=== PATIENT | female | born 1970 | race Caucasian/White ===

== ENCOUNTER 2018-08-30 09:42 | Emergency (ER) | payer OTHER ==
[~2018-08-30 09:42] MED LIST: ADV100/50 INH; ALB17R INH; ALBU8.5H IH; ALE10 PO; AZIT-17 PO; BENZ200C15 PO; CEF300 PO; CIP500 PO; DOXY-181 PO; ESOM20CA31 PO; FLU45SYR25 IM ONLY; FLU60SYR30 IM ONLY; FLUT16SP19 NS; HYDR2TAB4 PO; IBUP800T37 PO; LEVO250T37 PO; MONT10TA PO; MULT-820 PO; NAPR-1043 PO; OMEP-114 PO; PHENA200 PO; PRE20 PO; PRED20TA6 PO; Return to Work; Work Note
[2018-08-30] MEDS ORDERED: ALB6.7R INH (09:48)
[2018-08-30] MEDS ORDERED: ALBUTEROL/IPRATROPIUM 3 ML NEB NEB ONE ×2 (10:10→11:35)
[2018-08-30] MEDS ORDERED: guaiFENesin 600 MG TABCR PO ONE (10:10)
--- NOTE | 2018-08-30 10:20 | ER Report ---
History and Physical Time Seen By MD: 09:55 Hx. of Stated Complaint: INCREASING SOB SINCE FRIDAY HPI/ROS CHIEF COMPLAINT: shortness of breath, cough HISTORY OF PRESENT ILLNESS: Patient presents with symptoms that she feels like is a cold and asthma. 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 This morning she attempted her inhaler once which helped temporarily. She has also taken Sudafed to help with congestion. Patient states she is increasingly short of breath and feels she needs something to help with the congestion. She is short of breath both at rest and on exertion though increased on exertion. Patient does not have chest pain, fever, nausea, vomiting, abdominal pain, change in urination. Patient does note some swelling in all extremities but denies focal extremity pain. She has recently traveled by car to [place] which is less than 6 hours, but denies other travel. She denies family history of VTE. REVIEW OF SYSTEMS: Constitutional: No fever, no chills. Eyes: No discharge. ENT: sore throat with productive cough Cardiovascular: No chest pain, no palpitations. Respiratory: as above Gastrointestinal: No abdominal pain, no vomiting. Genitourinary: No hematuria. Musculoskeletal: No back pain. Skin: No rashes. Neurological: No headache. Remainder of the 14 system rev: Yes Allergies: Coded Allergies: Penicillins (Verified Allergy, Mild, HIVES, 08/30/18) latex (Verified Allergy, Mild, ITCHY, 08/30/18) IRRITATES ECZEMA codeine (Verified Adverse Reaction, Mild, NAUSEA AND VOMITING FOR 3 DAYS, 08/30/18) Home Meds Active Scripts Prednisone (PREDNISONE) 20 Mg Tablet, 40 MG PO QDAY for 4 Days, #8 TAB Prov:NAYELI GRIJALVA MD 08/30/18 Guaifenesin/Pseudoephedrne Hcl (MUCINEX D ER 600-60 MG TABLET) 1 Each Tab.er.12h, 1 EACH PO TID for 4 Days, #12 TAB-CAP Prov:NAYELI GRIJALVA MD 08/30/18 Montelukast Sodium (SINGULAIR) 10 Mg Tablet, 1 TAB PO QHS, #30 TAB 11 Refills Prov:HOANG RENAE APRN [employer] 10/28/16 Reported Medications Albuterol Sulfate (PROVENTIL HFA) 6.7 Gm Inh, 2 PUFF INH Q4-6H, INH 08/30/18 Discontinued Reported Medications Albuterol Sulfate 90 Mcg/Act (PROAIR HFA 90 MCG/ACT) Unknown Strength Hfa.aer.ad, IH 3-4XD, INHALER 03/17/18 Multivitamin (MULTIVITAMINS) 1 Each Tablet, 1 TAB PO DAILY, TAB 10/20/15 Omeprazole (PRILOSEC) 20 Mg Capsule.dr, 1 TAB PO QDAY, TAB 10/20/15 Discontinued Scripts [Work Note] No Conflict Check Patient seen in the office today with a cold and asthma. She may return to work tomorrow 03/18/18. Prov:MACIE SCHRADER DNP, FNP-BC 03/17/18 Benzonatate (BENZONATATE) 200 Mg Capsule, 1 CAP PO TID PRN for COUGH, #30 CAP 0 Refills Prov:MACIE SCHRADER DNP, FNP-BC 03/17/18 Prednisone (PREDNISONE) 20 Mg Tablet, 1 TAB PO BID for 5 Days, #10 TAB 0 Refills Prov:MACIE SCHRADER DNP, FNP-BC 03/17/18 [Return to Work] No Conflict Check Prov:MACIE SCHRADER DNP, FNP-BC 01/15/18 Ibuprofen (IBUPROFEN) 800 Mg Tablet, 1 TAB PO Q8H, #30 TAB 0 Refills Take with food every 8 hours. Prov:BECCA RAMIREZ MD 10/10/17 Reviewed Nurses Notes: Yes Hx Smoking: No Smoking Status: Never Smoker Exposure to Second Hand Smoke?: No Hx Substance Use Disorder: No Hx Alcohol Use: No Constitutional Vital Sign - Last 24 Hours 08/30/18 08/30/18 08/30/18 08/30/18 09:46 09:46 10:56 10:56 Temp 98.2 Pulse 86 64 Resp 22 18 B/P (MAP) 188/104 Pulse Ox 90 94 O2 Delivery Room Air Nasal Cannula O2 Flow Rate 1.0 1.0 08/30/18 08/30/18 11:40 11:40 Pulse 64 Resp 18 Pulse Ox 93 O2 Delivery Nasal Cannula O2 Flow Rate 1.0 Physical Exam General Appearance: The patient is alert, has no immediate need for airway protection and no signs of toxicity. Eyes: Pupils equal and round no pallor or injection. ENT, Mouth: Mucous membranes are moist. Respiratory: There are no retractions, lungs are clear to auscultation. Pt is on 1 L 02 Cardiovascular: Regular rate and rhythm. Gastrointestinal: Abdomen is soft and non tender, no masses, bowel sounds normal. Neurological: alert, oriented Skin: Warm and dry, no rashes. Musculoskeletal: Neck is supple non tender. Extremities are nontender and have full range of motion; however pt has mild edema in all extremities. DIFFERENTIAL DIAGNOSIS: After history and physical exam differential diagnosis was considered for shortness of breath including but not limited to pulmonary infectious process, COPD, asthma, pulmonary embolus and congestive heart failure, acs, asthma. Medical Decision Making Data Points Result Diagram: 08/30/18 1020 08/30/18 1020 Laboratory Hematology Test 08/30/18 10:20 Red Blood Count 5.24 M/uL (4.17-5.56) Mean Corpuscular Volume 78.2 fL (80.0-96.0) Mean Corpuscular Hemoglobin 24.8 pg (26.0-33.0) Mean Corpuscular Hemoglobin Concent 31.8 g/dL (32.0-36.0) Red Cell Distribution Width 16.6 % (11.5-14.5) Mean Platelet Volume 8.8 fL (7.2-11.1) Neutrophils (%) (Auto) 72.2 % (39.4-72.5) Lymphocytes (%) (Auto) 13.9 % (17.6-49.6) Monocytes (%) (Auto) 7.9 % (4.1-12.4) Eosinophils (%) (Auto) 2.2 % (0.4-6.7) Basophils (%) (Auto) 3.8 % (0.3-1.4) Nucleated RBC Relative Count (auto) 0.0 /100WBC Neutrophils # (Auto) 7.0 K/uL (2.0-7.4) Lymphocytes # (Auto) 1.3 K/uL (1.3-3.6) Monocytes # (Auto) 0.8 K/uL (0.3-1.0) Eosinophils # (Auto) 0.2 K/uL (0.0-0.5) Basophils # (Auto) 0.4 K/uL (0.0-0.1) Nucleated RBC Absolute Count (auto) 0.00 K/uL Peripheral Blood Smear Yes Y/N Sodium Level 142 mmol/L (137-145) Potassium Level 4.0 mmol/L (3.5-5.0) Chloride Level 104 mmol/L (98-107) Carbon Dioxide Level 31 mmol/L (22-31) Blood Urea Nitrogen 25 mg/dl (7-18) Creatinine 0.60 mg/dl (0.52-1.04) Glomerular Filtration Rate Calc > 60.0 Random Glucose 119 mg/dl (75-110) Calcium Level 8.9 mg/dl (8.4-10.2) Total Bilirubin 0.4 mg/dl (0.2-1.3) Aspartate Amino Transf (AST/SGOT) 19 U/L (0-35) Alanine Aminotransferase (ALT/SGPT) 23 U/L (0-56) Alkaline Phosphatase 65 U/L (0-126) Troponin I < 0.012 ng/ml B-Type Natriuretic Peptide 13 pg/ml (0-100) Total Protein 6.6 g/dl (6.3-8.2) Albumin 3.7 g/dl (3.5-5.0) Chemistry Test 08/30/18 10:20 White Blood Count 9.7 k/uL (4.5-11.0) Red Blood Count 5.24 M/uL (4.17-5.56) Hemoglobin 13.0 g/dL (12.0-16.0) Hematocrit 40.9 % (34.0-47.0) Mean Corpuscular Volume 78.2 fL (80.0-96.0) Mean Corpuscular Hemoglobin 24.8 pg (26.0-33.0) Mean Corpuscular Hemoglobin Concent 31.8 g/dL (32.0-36.0) Red Cell Distribution Width 16.6 % (11.5-14.5) Platelet Count 266 K/uL (150-450) Mean Platelet Volume 8.8 fL (7.2-11.1) Neutrophils (%) (Auto) 72.2 % (39.4-72.5) Lymphocytes (%) (Auto) 13.9 % (17.6-49.6) Monocytes (%) (Auto) 7.9 % (4.1-12.4) Eosinophils (%) (Auto) 2.2 % (0.4-6.7) Basophils (%) (Auto) 3.8 % (0.3-1.4) Nucleated RBC Relative Count (auto) 0.0 /100WBC Neutrophils # (Auto) 7.0 K/uL (2.0-7.4) Lymphocytes # (Auto) 1.3 K/uL (1.3-3.6) Monocytes # (Auto) 0.8 K/uL (0.3-1.0) Eosinophils # (Auto) 0.2 K/uL (0.0-0.5) Basophils # (Auto) 0.4 K/uL (0.0-0.1) Nucleated RBC Absolute Count (auto) 0.00 K/uL Peripheral Blood Smear Yes Y/N Glomerular Filtration Rate Calc > 60.0 Calcium Level 8.9 mg/dl (8.4-10.2) Total Bilirubin 0.4 mg/dl (0.2-1.3) Aspartate Amino Transf (AST/SGOT) 19 U/L (0-35) Alanine Aminotransferase (ALT/SGPT) 23 U/L (0-56) Alkaline Phosphatase 65 U/L (0-126) Troponin I < 0.012 ng/ml B-Type Natriuretic Peptide 13 pg/ml (0-100) Total Protein 6.6 g/dl (6.3-8.2) Albumin 3.7 g/dl (3.5-5.0) EKG/Imaging EKG Interpretation 12 lead EKG: Rhythm: Normal sinus rhythm [place]: Normal QRS: Normal ST segments: Normal Monitor Interpretation: Normal Sinus Rhythm Imaging X-ray: chest was obtained. I viewed the images myself on the PACS system. My interpretation of the images is: NACPD. The radiologist interpretation had no clinically significant variation from this interpretation. ED Course/Re-evaluation ED Course Patient presents with cough and dyspnea that she feels is like a cold as well as asthma exacerbation. Well her symptoms are very consistent with this, given her relatively clear lungs I did consider multiple other potential causes of her symptoms including CHF, VTE, ACS. After ED evaluation, patient has low likelihood of these serious etiologies (nonfocal exam, normal ekg, no tachycardia, wells score 0 points for PE). and she does improve with ED treatment. However, given her ongoing mild dyspnea while she is comfortable for discharge I recommend strict return precautions which patient does understand and agree to return if worse. Decision to Disposition Date: Aug 30, 2018 Decision to Disposition Time: 12:31 Depart Departure Latest Vital Signs Vital Signs Date Time Temp Pulse Resp B/P (MAP) Pulse Ox O2 Delivery O2 Flow Rate FiO2 08/30/18 11:40 93 Nasal Cannula 1.0 08/30/18 11:40 64 18 08/30/18 09:46 98.2 188/104 Impression: Primary Impression: Lower respiratory infection Condition: Improved Disposition: HOME OR SELF-CARE Referrals: HOANG RENAE APRN [employer] (PCP) New Scripts Prednisone (PREDNISONE) 20 Mg Tablet 40 MG PO QDAY for 4 Days, #8 TAB Prov: NAYELI GRIJALVA MD 08/30/18 Guaifenesin/Pseudoephedrne Hcl (MUCINEX D ER 600-60 MG TABLET) 1 Each Tab.er.12h 1 EACH PO TID for 4 Days, #12 TAB-CAP Prov: NAYELI GRIJALVA MD 08/30/18 Departure Forms: ER Transition Record, Medications Reconciliation, Off Work /School Form, School or Work Release?: Work Number of days to be released: 1 Patient Portal Information Patient Instructions: Dyspnea (ED) Additional Instructions: As we discussed, you improved somewhat with the breathing treatments, however it is still uncertain exactly what is causing your symptoms; please take medications as prescribed; you ay also use your inhaler every 4 hours as needed; but please return immediately for worsening shortness of breath, chest pain, or any concerns. NAYELI GRIJALVA MD Aug 30, 2018 10:20
--- NOTE | 2018-08-30 10:33 | EKG ---
FACILITY: [facility] PATIENT NAME: MORIS BEAVER : [id number] MR: [id number] V: [id number] EXAM DATE: ORDERING PHYSICIAN: NAYELI GRIJALVA TECHNOLOGIST: Test Reason : SOB Blood Pressure : / mmHG Vent. Rate : 071 BPM Atrial Rate : 071 BPM P-R Int : 148 ms QRS Dur : 082 ms QT Int : 396 ms P-R-T Axes : 029 044 010 degrees QTc Int : 430 ms Normal sinus rhythm Normal ECG No previous ECGs available Confirmed by ZOHAIB REARDON ([id number]) on 08/30/2018 6:16:56 PM Referred By: Confirmed By:ZOHAIB REARDON
[2018-08-30 10:41] LABS: PLATELET COUNT, AUTOMATED 266 K/uL (150-450)
[2018-08-30 11:30] VITALS: BP 167/91
[2018-08-30] MEDS ORDERED: predniSONE 20 MG TAB PO ONE (11:35)
--- NOTE | 2018-08-30 11:44 | RADIOLOGY IMAGING REPORT ---
FACILITY: [facility] - [place] PATIENT NAME: Tena Bob : 1970 MR: [id number] V: [id number] EXAM DATE: ORDERING PHYSICIAN: NAYELI GRIJALVA TECHNOLOGIST: Location: [facility] [place] Patient: Tena Bob : 1970 Visit/Account:[id number] Date of Sevice: 08/30/2018 CHEST PA AND LAT HISTORY: Shortness of breath. COMPARISON: None FINDINGS: Cardiomediastinal contours: The heart size is normal. Lungs and pleura: There is no finding of an infiltrate, lymphadenopathy or pleural effusion. Bones/soft tissues: There are no findings of a fracture. IMPRESSION: No active disease in the chest. Report Dictated By: Devon Licea MD at 08/30/2018 11:39 AM Report E-Signed By: Devon Licea MD at 08/30/2018 11:40 AM WSN:[id number]
[2018-08-30] MEDS ORDERED: GUAI-652 PO (12:27)
[2018-08-30] MEDS ORDERED: PRED20TA6 PO (12:27)
== END 2018-08-30 12:35 | disposition home or self-care (01) ==
LOC: ER 10:10
DX: J22 Unspecified acute lower respiratory infection (principal)
CPT/HCPCS: 71046; 83880; 84484; 85025; 93005; 94640; 99284; J7512; J7620; 82040; 82247; 82310; 82374; 82435; 82565; 82947; 84075; 84132; 84155; 84295; 84450; 84460; 84520

== ENCOUNTER 2018-10-04 07:57 | Emergency (ER) | payer OTHER ==
[~2018-10-04 07:57] MED LIST changes: +ALB6.7R INH; +FLU60VIA41 IM; +GUAI-652 PO
[2018-10-04] MEDS ORDERED: NS(*) 0.9% 1000 ML BAG 1,000 ML IV ONE (08:04)
[2018-10-04] MEDS ORDERED: ONDANSETRON 4 MG/2 ML VIAL IVP ONE (08:05)
[2018-10-04] MEDS ORDERED: KETOROLAC 30 MG/ML VIAL IVP ONE (08:05)
[2018-10-04] MEDS ORDERED: METOCLOPRAMIDE 10 MG/2 ML SDV IVP ONE (08:10)
--- NOTE | 2018-10-04 08:25 | ER Report ---
History and Physical Time Seen By MD: 08:02 Hx. of Stated Complaint: vomiting and headache since 5am. some diarrhea. congestion. low back pain HPI/ROS CHIEF COMPLAINT: Abdominal pain, nausea, vomiting HISTORY OF PRESENT ILLNESS: Patient is a 48-year-old female here with complaints of abdominal pain, nausea, vomiting which started this morning approximately 5:00. Patient reports intermittent cough, several episodes of vomiting with associated nausea, diffuse abdominal pain, headache, photosensitivity. Patient denies prior surgeries to the abdomen aside from surgery of the uterus. She does report a recent viral illness. Patient is otherwise healthy at baseline. Denies blood in the stools or urine, chest pain, rash. REVIEW OF SYSTEMS: Constitutional: No fever, no chills. Eyes: No discharge. ENT: No sore throat. Cardiovascular: No chest pain, no palpitations. Respiratory: No cough, no shortness of breath. Gastrointestinal: + Diffuse abdominal pain, + nausea and vomiting. Genitourinary: No hematuria. Musculoskeletal: No back pain. Skin: No rashes. Neurological: No headache. Allergies: Coded Allergies: Penicillins (Verified Allergy, Mild, HIVES, 08/30/18) latex (Verified Allergy, Mild, ITCHY, 08/30/18) IRRITATES ECZEMA codeine (Verified Adverse Reaction, Mild, NAUSEA AND VOMITING FOR 3 DAYS, 08/30/18) Home Meds Active Scripts Ondansetron (ZOFRAN ODT) 4 Mg Tab.rapdis, 4 MG PO Q6H PRN for NAUSEA/VOMITING, #20 TAB.ALICIA 0 Refills Prov:GUS BARILLAS DO 10/04/18 Prednisone (PREDNISONE) 20 Mg Tablet, 40 MG PO QDAY for 4 Days, #8 TAB Prov:NAYELI GRIJALVA MD 08/30/18 Guaifenesin/Pseudoephedrne Hcl (MUCINEX D ER 600-60 MG TABLET) 1 Each Tab.er.12h, 1 EACH PO TID for 4 Days, #12 TAB-CAP Prov:NAYELI GRIJALVA MD 08/30/18 Montelukast Sodium (SINGULAIR) 10 Mg Tablet, 1 TAB PO QHS, #30 TAB 11 Refills Prov:HOANG RENAE APRN [employer] 10/28/16 Reported Medications Albuterol Sulfate (PROVENTIL HFA) 6.7 Gm Inh, 2 PUFF INH Q4-6H, INH 08/30/18 Hx Smoking: No Smoking Status: Never Smoker Exposure to Second Hand Smoke?: No Hx Substance Use Disorder: No Hx Alcohol Use: No Constitutional Vital Sign - Last 24 Hours 10/04/18 10/04/18 10/04/18 10/04/18 07:57 08:02 08:02 08:12 Temp 98.2 Pulse ??? 93 91 Resp 18 19 B/P (MAP) 131/115 (120) 131/115 Pulse Ox 94 98 O2 Delivery Room Air 10/04/18 10/04/18 10/04/18 10/04/18 08:27 08:30 08:42 08:57 Pulse 86 ? O2 Flow Rate 1.0 10/04/18 10/04/18 10/04/18 10/04/18 09:00 09:12 09:16 09:21 Pulse ??? 69 Resp 7 B/P (MAP) ???/??? (6935) 138/79 (98) Pulse Ox 86 10/04/18 10/04/18 10/04/18 10/04/18 09:30 09:36 09:40 09:40 Pulse 79 73 Resp 8 B/P (MAP) 155/90 (111) Pulse Ox 90 92 O2 Delivery Nasal Cannula O2 Flow Rate 4.0 10/04/18 10/04/18 10/04/18 10/04/18 09:51 10:04 10:06 10:21 Pulse 72 79 73 Resp 5 11 10 B/P (MAP) 154/107 (123) Pulse Ox 97 93 95 10/04/18 10/04/18 10/04/18 10/04/18 10:30 10:36 10:51 10:56 Pulse 74 72 66 Resp 12 7 12 B/P (MAP) 152/90 (110) Pulse Ox 95 99 97 10/04/18 10/04/18 10/04/18 10/04/18 11:00 11:11 11:14 11:26 Pulse 74 ??? Resp 10 B/P (MAP) 129/84 (99) 144/80 (101) Pulse Ox 97 Physical Exam General Appearance: The patient is alert, has no immediate need for airway protection and no signs of toxicity. Moderate distress Eyes: Pupils equal and round no pallor or injection. ENT, Mouth: Mucous membranes are moist. Respiratory: There are no retractions, lungs are clear to auscultation. Cardiovascular: Regular rate and rhythm. Gastrointestinal: Abdomen is soft and + diffusely tender, no masses, bowel sounds normal. Neurological: No focal neuro deficits Skin: Warm and dry, no rashes. Musculoskeletal: Neck is supple non tender. Extremities are nontender, nonswollen and have full range of motion. DIFFERENTIAL DIAGNOSIS: After history and physical exam differential diagnosis was considered for abdominal pain including but not limited to appendicitis, cholecystitis, gastritis and urinary tract infection. Medical Decision Making Data Points Result Diagram: 10/04/18 0819 10/04/18 0819 Laboratory Hematology Test 10/04/18 08:19 10/04/18 09:15 Red Blood Count 5.38 M/uL (4.17-5.56) Mean Corpuscular Volume 78.6 fL (80.0-96.0) Mean Corpuscular Hemoglobin 25.1 pg (26.0-33.0) Mean Corpuscular Hemoglobin Concent 31.9 g/dL (32.0-36.0) Red Cell Distribution Width 16.9 % (11.5-14.5) Mean Platelet Volume 8.6 fL (7.2-11.1) Neutrophils (%) (Auto) 78.2 % (39.4-72.5) Lymphocytes (%) (Auto) 13.9 % (17.6-49.6) Monocytes (%) (Auto) 6.5 % (4.1-12.4) Eosinophils (%) (Auto) 0.9 % (0.4-6.7) Basophils (%) (Auto) 0.5 % (0.3-1.4) Nucleated RBC Relative Count (auto) 0.1 /100WBC Neutrophils # (Auto) 7.6 K/uL (2.0-7.4) Lymphocytes # (Auto) 1.3 K/uL (1.3-3.6) Monocytes # (Auto) 0.6 K/uL (0.3-1.0) Eosinophils # (Auto) 0.1 K/uL (0.0-0.5) Basophils # (Auto) 0.0 K/uL (0.0-0.1) Nucleated RBC Absolute Count (auto) 0.01 K/uL Prothrombin Time 12.4 seconds (12.0-14.4) Prothromb Time International Ratio 0.92 Activated Partial Thromboplast Time 28 seconds (23-35) Sodium Level 140 mmol/L (137-145) Potassium Level 4.0 mmol/L (3.5-5.0) Chloride Level 102 mmol/L (98-107) Carbon Dioxide Level 27 mmol/L (22-31) Blood Urea Nitrogen 19 mg/dl (7-18) Creatinine 0.60 mg/dl (0.52-1.04) Glomerular Filtration Rate Calc > 60.0 Random Glucose 125 mg/dl (75-110) Calcium Level 9.4 mg/dl (8.4-10.2) Total Bilirubin 0.5 mg/dl (0.2-1.3) Aspartate Amino Transf (AST/SGOT) 22 U/L (0-35) Alanine Aminotransferase (ALT/SGPT) 36 U/L (0-56) Alkaline Phosphatase 67 U/L (0-126) C-Reactive Protein 0.8 mg/dl (<1.0) Total Protein 6.5 g/dl (6.3-8.2) Albumin 3.6 g/dl (3.5-5.0) Lipase 40 U/L (23-300) Urine Color Yellow Urine Clarity Clear Urine pH 6.0 pH (4.8-9.5) Urine Specific [place] 1.034 Urine Protein 100 mg/dL (NEGATIVE) Urine Glucose (UA) Negative mg/dL (NEGATIVE) Urine Ketones Trace mg/dL (NEGATIVE) Urine Blood Negative (NEGATIVE) Urine Nitrite Negative (NEGATIVE) Urine Bilirubin Negative (NEGATIVE) Urine Urobilinogen Negative mg/dL (0.2-1.9) Urine Leukocyte Esterase Negative (NEGATIVE) Urine RBC None /HPF (0-2/HPF) Urine WBC 2 /HPF (0-5/HPF) Urine Squamous Epithelial Cells Moderate /LPF (</=FEW) Urine Transitional Epithelial Cells Few /LPF (NONE-FEW) Urine Bacteria Few /HPF (NONE-FEW) Urine Mucus Few /HPF (NONE-FEW) Chemistry Test 10/04/18 08:19 10/04/18 09:15 White Blood Count 9.7 k/uL (4.5-11.0) Red Blood Count 5.38 M/uL (4.17-5.56) Hemoglobin 13.5 g/dL (12.0-16.0) Hematocrit 42.2 % (34.0-47.0) Mean Corpuscular Volume 78.6 fL (80.0-96.0) Mean Corpuscular Hemoglobin 25.1 pg (26.0-33.0) Mean Corpuscular Hemoglobin Concent 31.9 g/dL (32.0-36.0) Red Cell Distribution Width 16.9 % (11.5-14.5) Platelet Count 285 K/uL (150-450) Mean Platelet Volume 8.6 fL (7.2-11.1) Neutrophils (%) (Auto) 78.2 % (39.4-72.5) Lymphocytes (%) (Auto) 13.9 % (17.6-49.6) Monocytes (%) (Auto) 6.5 % (4.1-12.4) Eosinophils (%) (Auto) 0.9 % (0.4-6.7) Basophils (%) (Auto) 0.5 % (0.3-1.4) Nucleated RBC Relative Count (auto) 0.1 /100WBC Neutrophils # (Auto) 7.6 K/uL (2.0-7.4) Lymphocytes # (Auto) 1.3 K/uL (1.3-3.6) Monocytes # (Auto) 0.6 K/uL (0.3-1.0) Eosinophils # (Auto) 0.1 K/uL (0.0-0.5) Basophils # (Auto) 0.0 K/uL (0.0-0.1) Nucleated RBC Absolute Count (auto) 0.01 K/uL Prothrombin Time 12.4 seconds (12.0-14.4) Prothromb Time International Ratio 0.92 Activated Partial Thromboplast Time 28 seconds (23-35) Glomerular Filtration Rate Calc > 60.0 Calcium Level 9.4 mg/dl (8.4-10.2) Total Bilirubin 0.5 mg/dl (0.2-1.3) Aspartate Amino Transf (AST/SGOT) 22 U/L (0-35) Alanine Aminotransferase (ALT/SGPT) 36 U/L (0-56) Alkaline Phosphatase 67 U/L (0-126) C-Reactive Protein 0.8 mg/dl (<1.0) Total Protein 6.5 g/dl (6.3-8.2) Albumin 3.6 g/dl (3.5-5.0) Lipase 40 U/L (23-300) Urine Color Yellow Urine Clarity Clear Urine pH 6.0 pH (4.8-9.5) Urine Specific [place] 1.034 Urine Protein 100 mg/dL (NEGATIVE) Urine Glucose (UA) Negative mg/dL (NEGATIVE) Urine Ketones Trace mg/dL (NEGATIVE) Urine Blood Negative (NEGATIVE) Urine Nitrite Negative (NEGATIVE) Urine Bilirubin Negative (NEGATIVE) Urine Urobilinogen Negative mg/dL (0.2-1.9) Urine Leukocyte Esterase Negative (NEGATIVE) Urine RBC None /HPF (0-2/HPF) Urine WBC 2 /HPF (0-5/HPF) Urine Squamous Epithelial Cells Moderate /LPF (</=FEW) Urine Transitional Epithelial Cells Few /LPF (NONE-FEW) Urine Bacteria Few /HPF (NONE-FEW) Urine Mucus Few /HPF (NONE-FEW) Coagulation Test 10/04/18 08:19 Prothrombin Time 12.4 seconds Prothromb Time International Ratio 0.92 Activated Partial Thromboplast Time 28 seconds Urinalysis Test 10/04/18 09:15 Urine Color Yellow Urine Clarity Clear Urine pH 6.0 pH (4.8-9.5) Urine Specific [place] 1.034 Urine Protein 100 mg/dL (NEGATIVE) Urine Glucose (UA) Negative mg/dL (NEGATIVE) Urine Ketones Trace mg/dL (NEGATIVE) Urine Blood Negative (NEGATIVE) Urine Nitrite Negative (NEGATIVE) Urine Bilirubin Negative (NEGATIVE) Urine Urobilinogen Negative mg/dL (0.2-1.9) Urine Leukocyte Esterase Negative (NEGATIVE) Urine RBC None /HPF (0-2/HPF) Urine WBC 2 /HPF (0-5/HPF) Urine Squamous Epithelial Cells Moderate /LPF (</=FEW) Urine Transitional Epithelial Cells Few /LPF (NONE-FEW) Urine Bacteria Few /HPF (NONE-FEW) Urine Mucus Few /HPF (NONE-FEW) EKG/Imaging Imaging ABDOMEN/PELVIS WITH CONTRAST HISTORY: abd pain, [place] TECHNIQUE: CT abdomen and pelvis 100 cc of Isovue 370 IV. One of the following dose optimization techniques was utilized in the performance of this exam: automated exposure control; adjustment of the mA and/or kV according to the patient's size; or use of an iterative reconstruction technique. Specific details can be referenced in the facility's radiology CT exam operational policy. COMPARISON: None. FINDINGS: Liver/gallbladder: There is diffuse decreased attenuation throughout the liver consistent with fatty infiltration. The gallbladder is normal. Spleen: Normal. Adrenals: Normal. Pancreas: Normal enhancement without evidence of mass. Kidneys/: There is very mild left-sided hydronephrosis. Right kidney is normal. There is no suspicious mass. Both ureters are patent, without evidence of calculus. Pelvis: Urinary bladder and uterus are normal. Ovaries are normal. GI: The colon, small bowel, and stomach are normal. The appendix is normal. Vessels/spaces/nodes: Negative. Bones/soft tissues: There are no lytic or blastic bone lesions. Soft tissues are normal. Visualized lung bases: Clear. IMPRESSION: 1. Mild left-sided hydronephrosis. There is no evidence of obstructing left ureteral calculus. 2. Fatty infiltration liver. 3. Normal appearance of the appendix. After discussing the case with her physician, patient is mostly nausea and vomiting. Therefore, the left-sided mild hydronephrosis is likely not clinically significant. Location: [facility] Patient: Tena Bob : 1970 Visit/Account:[id number] Date of Sevice: 10/04/2018 EXAMINATION: Chest radiographs 2 views HISTORY: Cough, nausea and vomiting. COMPARISON: 08/30/2018. FINDINGS: PA and lateral views of the chest are submitted. Lines/tubes: None. Lungs/pleura: No focal consolidation or pleural effusion. Heart: Negative. Mediastinum: Negative. Bony structures/body wall: Negative. IMPRESSION: No radiographic evidence of acute cardiopulmonary disease. ED Course/Re-evaluation Clinical Indication for ER IV: Hydration, IV Access ED Course Patient is a 48-year-old female here with complaints of nausea, abdominal pain, headache which started this morning. Labs were found to be unremarkable. Patient was given IV fluids, antiemetics with significant relief of symptoms. CT abdomen and pelvis and chest x-ray showed no acute findings. Patient was given Zofran prescription for outpatient treatment and advised to hydrate and follow up with her PCP. Patient was stable at time of discharge. Decision to Disposition Date: Oct 04, 2018 Decision to Disposition Time: 11:30 Depart Departure Latest Vital Signs Vital Signs Date Time Temp Pulse Resp B/P (MAP) Pulse Ox O2 Delivery O2 Flow Rate FiO2 10/04/18 11:26 ??? 10/04/18 11:14 144/80 (101) 10/04/18 11:11 10 97 10/04/18 09:40 Nasal Cannula 4.0 10/04/18 08:02 98.2 Impression: Primary Impression: Nausea & vomiting Additional Impression: Abdominal pain Condition: Improved Disposition: HOME OR SELF-CARE Referrals: HOANG RENAE APRN [employer] (PCP) New Scripts Ondansetron (ZOFRAN ODT) 4 Mg Tab.rapdis 4 MG PO Q6H PRN for NAUSEA/VOMITING, #20 TAB.ALICIA 0 Refills Prov: GUS BARILLSA DO 10/04/18 Patient Instructions: Abdominal Pain (ED), Acute Nausea and Vomiting (DC) Additional Instructions: Please follow-up with your family doctor in the next 2 days. Once you sleep your oxygen levels appear to drop so you may have sleep apnea and may require a sleep study and a CPAP machine if this is the case. Please keep your oxygen on around the clock for the next day until you are able to follow-up with your family doctor. Please drink plenty of water. You may take 1 tablet of Zofran every 4-6 hours as needed for nausea and vomiting. Please return promptly if you develop fevers, worsening pain, inability to hold down fluid or foods. Problem Qualifiers GUS BARILLAS DO Oct 04, 2018 08:25
[2018-10-04 08:32] LABS: PLATELET COUNT, AUTOMATED 285 K/uL (150-450)
[2018-10-04 08:41] LABS: INR 0.92
[2018-10-04] MEDS ORDERED: IOPAMIDOL 76% 75 ML INFUS BTL 75 ML ONE (08:43)
[2018-10-04] MEDS ORDERED: ALBUTEROL/IPRATROPIUM 3 ML NEB NEB ONE (09:35)
--- NOTE | 2018-10-04 09:36 | RADIOLOGY IMAGING REPORT ---
FACILITY: [facility] PATIENT NAME: Tena Bob : 1970 MR: [id number] V: [id number] EXAM DATE: ORDERING PHYSICIAN: GUS BARILLAS TECHNOLOGIST: Location: [facility] Patient: Tena Bob : 1970 Visit/Account:[id number] Date of Sevice: 10/04/2018 EXAMINATION: Chest radiographs 2 views HISTORY: Cough, nausea and vomiting. COMPARISON: 08/30/2018. FINDINGS: PA and lateral views of the chest are submitted. Lines/tubes: None. Lungs/pleura: No focal consolidation or pleural effusion. Heart: Negative. Mediastinum: Negative. Bony structures/body wall: Negative. IMPRESSION: No radiographic evidence of acute cardiopulmonary disease. Report Dictated By: Aiyana Barrios MD at 10/04/2018 9:32 AM Report E-Signed By: Aiyana Barrios MD at 10/04/2018 9:33 AM WSN:[id number]
--- NOTE | 2018-10-04 09:47 | RADIOLOGY IMAGING REPORT ---
FACILITY: [facility] PATIENT NAME: Tena Bob : 1970 MR: [id number] V: [id number] EXAM DATE: ORDERING PHYSICIAN: GUS BARILLAS TECHNOLOGIST: Location: [facility] Patient: Tena Bob : 1970 Visit/Account:[id number] Date of Sevice: 10/04/2018 ABDOMEN/PELVIS WITH CONTRAST HISTORY: abd pain, [place] TECHNIQUE: CT abdomen and pelvis 100 cc of Isovue 370 IV. One of the following dose optimization te chniques was utilized in the performance of this exam: automated exposure control; adjustment of the mA and/or kV according to the patient's size; or use of an iterative reconstruction technique. Speci fic details can be referenced in the facility's radiology CT exam operational policy. COMPARISON: None. FINDINGS: Liver/gallbladder: There is diffuse decreased attenuation throughout the liver consistent with fatty infiltration. The gallbladder is normal. Spleen: Normal. Adrenals: Normal. Pancreas: Normal enhancement without evidence of mass. Kidneys/: There is very mild left-sided hydronephrosis. Right kidney is normal. There is no suspic ious mass. Both ureters are patent, without evidence of calculus. Pelvis: Urinary bladder and uterus are normal. Ovaries are normal. GI: The colon, small bowel, and stomach are normal. The appendix is normal. Vessels/spaces/nodes: Negative. Bones/soft tissues: There are no lytic or blastic bone lesions. Soft tissues are normal. Visualized lung bases: Clear. IMPRESSION: 1. Mild left-sided hydronephrosis. There is no evidence of obstructing left ureteral calculus. 2. Fatty infiltration liver. 3. Normal appearance of the appendix. After discussing the case with her physician, patient is mostly nausea and vomiting. Therefore, the l eft-sided mild hydronephrosis is likely not clinically significant. This was called by Dr. Fritz to GUS BARILLAS on 10/04/2018 9:13 AM Report Dictated By: Gatito Fritz at 10/04/2018 9:13 AM Report E-Signed By: Gatito Fritz at 10/04/2018 9:43 AM WSN:[id number]
[2018-10-04] MEDS ORDERED: ONDA4TAB PO (09:56)
[2018-10-04 11:14] VITALS: BP 144/80
== END 2018-10-04 11:31 | disposition home or self-care (01) ==
LOC: ER 08:18
DX: R11.2 Nausea with vomiting, unspecified (principal); R10.9 Unspecified abdominal pain
CPT/HCPCS: 71046; 74177; 81001; 83690; 85025; 85610; 85730; 86140; 94640; 96361; 96374; 96375; 99284; J1885; J2765; J7030; J7620; Q9967; 82040; 82247; 82310; 82374; 82435; 82565; 82947; 84075; 84132; 84155; 84295; 84450; 84460; 84520

== ENCOUNTER 2019-02-26 16:19 | Emergency (ER) | payer OTHER ==
[~2019-02-26 16:19] MED LIST changes: +ONDA4TAB PO
[2019-02-26] MEDS ORDERED: ALBUTEROL/IPRATROPIUM 3 ML NEB NEB ONE ×2 (16:40→17:15)
--- NOTE | 2019-02-26 16:41 | ER Report ---
History and Physical Time Seen By MD: 16:40 Hx. of Stated Complaint: SORE THROAT, LOSING VOICE, SOB WITH EXERTION HPI/ROS CHIEF COMPLAINT: Cough and wheezing HISTORY OF PRESENT ILLNESS: This is a 48-year-old female presents to emergency department for a cough and wheezing. Patient and her were potentially exposed to some black mold in their apartment, they discovered this recently and moved out of their apartment last week, they did clean their apartment on Friday, since then she's had increased chest congestion, sore throat and some wheezing. She's losing her voice, and feels short of breath. She states this was a pretty abrupt onset, maybe had some aches and chills, no documented fevers. No nausea or vomiting. No chest pain. No diarrhea. REVIEW OF SYSTEMS: Constitutional: As above. ENT: As above. Respiratory: As above. Cardiovascular: No chest pain, no palpitations. Gastrointestinal: No vomiting, no abdominal pain. Musculoskeletal: No back pain. Allergies: Coded Allergies: Penicillins (Verified Allergy, Mild, HIVES, 08/30/18) latex (Verified Allergy, Mild, ITCHY, 08/30/18) IRRITATES ECZEMA codeine (Verified Adverse Reaction, Mild, NAUSEA AND VOMITING FOR 3 DAYS, 08/30/18) Home Meds Active Scripts Prednisone (PREDNISONE) 20 Mg Tablet, 20 MG PO BID, #10 TAB Prov:MELISSA REIS [facility]- 02/26/19 Albuterol Sulfate 90 Mcg/Act (PROAIR HFA 90 MCG/ACT) 8.5 Gm Hfa.aer.ad, 1-2 PUFF IH 3-4XD, #1 INHALER 0 Refills Prov:MELISSA REIS [facility]-BC 02/26/19 Montelukast Sodium (SINGULAIR) 10 Mg Tablet, 1 TAB PO QHS, #30 TAB 11 Refills Prov:HOANG RENAE APRN [employer] 11/10/18 Ondansetron (ZOFRAN ODT) 4 Mg Tab.rapdis, 4 MG PO Q6H PRN for NAUSEA/VOMITING, #20 TAB.ALICIA 0 Refills Prov:GUS BARILLAS DO 10/04/18 Prednisone (PREDNISONE) 20 Mg Tablet, 40 MG PO QDAY for 4 Days, #8 TAB Prov:NAYELI GRIJALVA MD 08/30/18 Guaifenesin/Pseudoephedrne Hcl (MUCINEX D ER 600-60 MG TABLET) 1 Each Tab.er.12h , 1 EACH PO TID for 4 Days, #12 TAB-CAP Prov:NAYELI GRIJALVA MD 08/30/18 Reported Medications Albuterol Sulfate (PROVENTIL HFA) 6.7 Gm Inh, 2 PUFF INH Q4-6H, INH 08/30/18 Past Medical/Surgical History The patient has a past medical and surgical history of headaches, asthma, GERD, stress incontinence, uterine fibroids, perimenopausal, spina bifida, eczema, kidney infection, , test anxiety. Reviewed Nurses Notes: Yes Hx Smoking: No Smoking Status: Never Smoker Exposure to Second Hand Smoke?: No Hx Substance Use Disorder: No Hx Alcohol Use: No Constitutional Vital Sign - Last 24 Hours 02/26/19 02/26/19 02/26/19 02/26/19 16:24 16:25 16:30 16:34 Temp 98.0 Pulse 78 69 Resp 16 B/P (MAP) 140/90 (107) 140/90 150/112 (125) Pulse Ox 90 96 O2 Delivery Room Air 02/26/19 02/26/19 02/26/19 02/26/19 16:45 16:45 16:49 16:53 Pulse 66 67 75 Resp 16 16 Pulse Ox 96 100 O2 Delivery Nasal Cannula O2 Flow Rate 2.0 02/26/19 02/26/19 02/26/19 02/26/19 17:00 17:04 17:09 17:19 Pulse ??? 68 B/P (MAP) 131/79 (96) 150/91 (110) Pulse Ox 97 02/26/19 02/26/19 02/26/19 02/26/19 17:30 17:34 17:34 17:34 Pulse 69 69 Resp 16 B/P (MAP) 158/82 (107) Pulse Ox 96 99 O2 Delivery Nasal Cannula O2 Flow Rate 2.0 02/26/19 02/26/19 02/26/19 17:40 17:49 18:50 Temp 97.3 Pulse 80 64 Resp 16 Pulse Ox 91 Physical Exam General Appearance: The patient is alert, has no immediate need for airway protection and no current signs of toxicity. Eyes: Pupils equal and round no injection. Respiratory: Chest is non tender, slightly diminished in the bases otherwise clear to auscultation. Cardiac: regular rate and rhythm, no murmurs, clicks or rubs. Gastrointestinal: Abdomen is soft and non tender, no masses, bowel sounds normal. Musculoskeletal: Neck: Neck is supple and non tender. Extremities have full range of motion and are non tender. Skin: No rashes or lesions. DIFFERENTIAL DIAGNOSIS: After history and physical exam differential diagnosis was considered for shortness of breath including but not limited to pulmonary infectious process, COPD, asthma, pulmonary embolus and congestive heart failure. Medical Decision Making Data Points Laboratory Hematology Test 02/26/19 17:16 Influenza Virus Type A (PCR) Negative (NEGATIVE) Influenza Virus Type B (PCR) Negative (NEGATIVE) Chemistry Test 02/26/19 17:16 Influenza Virus Type A (PCR) Negative (NEGATIVE) Influenza Virus Type B (PCR) Negative (NEGATIVE) EKG/Imaging Imaging Location: [facility] Patient: Tena Bob : 1970 Visit/Account:[id number] Date of Sevice: 02/26/2019 2 VIEWS CHEST INDICATION: Cough COMPARISON: X-ray examination chest October 2018 FINDINGS: Heart size within normal limits. There is no focal infiltrate or consolidation. Two views demonstrate mild peribronchial wall thickening. Findings appear similar to slightly more accentuated as compared to prior exam. There is no pneumothorax or pleural effusion. No acute bony finding. IMPRESSION: 1. Mild central bronchitic changes suspicious for the sequelae of acute or chronic bronchitis. No evidence of new focal infiltrate. Report Dictated By: Moose Pena MD at 02/26/2019 5:20 PM Report E-Signed By: Moose Pena MD at 02/26/2019 5:21 PM WSN:[facility] ED Course/Re-evaluation ED Course The patient was admitted to room. A history and physical were obtained. Differential diagnoses were considered. Negative influenza. Patient was given DuoNeb 2 with marked improvement of oxygenation, two-view chest x-ray consistent with bronchitis. Patient was given 40 mg by mouth prednisone, she was also given a albuterol MDI with spacer, a prescription was sent to the patient's pharmacy for MDI as well as prednisone. I did tell them that antibiotics are not warranted at this time, I would like him to follow up with her primary care provider next week for reevaluation, she chest understanding was discharged home. Decision to Disposition Date: Feb 26, 2019 Decision to Disposition Time: 18:19 Depart Departure Latest Vital Signs Vital Signs Date Time Temp Pulse Resp B/P (MAP) Pulse Ox O2 Delivery O2 Flow Rate FiO2 02/26/19 18:50 97.3 02/26/19 17:49 64 91 02/26/19 17:40 16 02/26/19 17:34 Nasal Cannula 2.0 02/26/19 17:30 158/82 (107) Impression: Primary Impression: Bronchitis Condition: Improved Disposition: HOME OR SELF-CARE Referrals: HOANG RENAE APRN (PCP) 1 Week New Scripts Prednisone (PREDNISONE) 20 Mg Tablet 20 MG PO BID, #10 TAB Prov: MELISSA REIS-DIANA 02/26/19 Albuterol Sulfate 90 Mcg/Act (PROAIR HFA 90 MCG/ACT) 8.5 Gm Hfa.aer.ad 1-2 PUFF IH 3-4XD, #1 INHALER 0 Refills Prov: MELISSA REIS 02/26/19 Patient Instructions: Acute Bronchitis (ED), Asthma (ED) MELISSA REIS Feb 26, 2019 16:41
--- NOTE | 2019-02-26 17:25 | RADIOLOGY IMAGING REPORT ---
FACILITY: [facility] [place] PATIENT NAME: Tena Bob : 1970 MR: [id number] V: [id number] EXAM DATE: ORDERING PHYSICIAN: MELISSA REIS TECHNOLOGIST: Location: [facility] Patient: Tena Bob : 1970 Visit/Account:[id number] Date of Sevice: 02/26/2019 2 VIEWS CHEST INDICATION: Cough COMPARISON: X-ray examination chest October 2018 FINDINGS: Heart size within normal limits. There is no focal infiltrate or consolidation. Two views demonstrate mild peribronchial wall thicken ing. Findings appear similar to slightly more accentuated as compared to prior exam. There is no pneumothorax or pleural effusion. No acute bony finding. IMPRESSION: 1. Mild central bronchitic changes suspicious for the sequelae of acute or chronic bronchitis. No e vidence of new focal infiltrate. Report Dictated By: Moose Pena MD at 02/26/2019 5:20 PM Report E-Signed By: Moose Pena MD at 02/26/2019 5:21 PM WSN:[id number]
[2019-02-26 17:30] VITALS: BP 158/82
[2019-02-26] MEDS ORDERED: predniSONE 20 MG TAB PO ONE (18:10)
[2019-02-26] MEDS ORDERED: ALBUTEROL 8 GM INHALER INH ONE (18:15)
[2019-02-26] MEDS ORDERED: ALBU8.5H IH (18:20)
[2019-02-26] MEDS ORDERED: PRED20TA6 PO (18:20)
== END 2019-02-26 18:45 | disposition home or self-care (01) ==
LOC: ER 16:43
DX: J40 Bronchitis, not specified as acute or chronic (principal)
CPT/HCPCS: 71046; 87502; 94640; 99284; J7512; J7620